=== PATIENT | male | born 1970 | race Caucasian/White ===

== ENCOUNTER 2017-09-05 12:36 | Emergency (ER) | payer MEDICARE, OTHER ==
[2017-09-05] MEDS ORDERED: KETOROLAC TROMETHAMINE INJ 30 MG/ML VIAL IV ONE (12:55)
[2017-09-05] MEDS ORDERED: SODIUM CHLORIDE 0.9% 1000ML 1,000 ML IVS ONE (12:56)
[2017-09-05] MEDS ORDERED: ONDANSETRON INJ 4 MG/2 ML VIAL IV ONE (12:56)
--- NOTE | 2017-09-05 13:01 | ED.PDOC ---
History of Present Illness - General Chief Complaint: Problem Stated Complaint: Groin/abdominal discomfort Time Seen by Provider: 09/05/17 12:55 Source: patient Exam Limitations: no limitations - History of Present Illness Initial Comments: ACUTE ONSET OF RIGHT FLANK PAIN RADIATING TO THE RIGHT SCROTAL AREA. ONSET TWO HOURS AGO AND VOICES THAT HE HAS HAD RENAL COLIC BEFORE. HE RATES THE PAIN 10/ 10. Timing/Duration: just prior to arrival, this morning Quality: severe, throbbing Onset Location: right flank Radiation: scrotal Activites at Onset: none Prior abdominal problems: similar symptoms Worsening Factors: nothing Associated Symptoms: nausea/vomiting Allergies/Adverse Reactions: Allergies NO KNOWN ALLERGY Allergy (Verified 01/05/13 10:27) Home Medications: Ambulatory Orders Ketorolac Tromethamine 10 mg PO Q8HRS #13 tab 09/05/17 Tamsulosin HCl [Flomax] 0.4 mg PO BIW #7 cap 09/05/17 Tramadol HCl 50 mg PO QID #20 tab 09/05/17 Review of Systems - Review of Systems Constitutional: States: malaise EENTM: States: no symptoms reported Respiratory: States: no symptoms reported Cardiology: States: no symptoms reported Gastrointestinal/Abdominal: States: see HPI, abdominal pain, nausea, vomiting Genitourinary: States: pain Musculoskeletal: States: no symptoms reported Skin: States: no symptoms reported Neurological: States: no symptoms reported Endocrine: States: no symptoms reported Hematologic/Lymphatic: States: no symptoms reported Past Medical History (General) - Patient Medical History Hx Stroke: No Hx Congestive Heart Failure: No Hx Diabetes: No Hx Renal Disease: - Hx of kidney stones Surgical History: tonsillectomy - Vaccination History Hx Influenza Vaccination: No Hx Pneumococcal Vaccination: No - Social History Hx Tobacco Use: Yes Family Medical History - Family History Father Family History: No Known Living Status: Physical Exam - Physical Exam General Appearance: Alert, Ill Appearing, Restless Eyes, Ears, Nose, Throat Exam: PERRL/EOMI, normal ENT inspection, TMs normal, pharynx normal Neck: non-tender, full range of motion, supple Cardiovascular/Respiratory: regular rate, rhythm, normal peripheral pulses, no JVD Gastrointestinal/Abdominal: normal bowel sounds, non tender, soft, no organomegaly, no pulsatile mass Rectal Exam: deferred Back Exam: normal inspection, no vertebral tenderness, CVA tenderness (R) Extremity: normal range of motion, non-tender, normal inspection, no pedal edema Neurologic: no motor/sensory deficits, normal mood/affect, oriented x 3 Skin Exam: normal color Lymphatic: no adenopathy Progress - Results/Orders Results/Orders: UA IS RESULTED-TNTC RBC'S. CT ABDOMEN AND PELVIS: 5 MM STONE ON THE LEFT DISTAL URETER Departure - Departure Clinical Impression: Renal colic on left side Time of Disposition: 16:36 Disposition: Discharge to Home or Self Care Condition: Good Departure Forms: ED Discharge - Pt. Copy, Patient Portal Self Enrollment Instructions: DI for Kidney Stones Diet: resume usual diet Activity: increase activity as tolerated Referrals: Sky Clayton III, MD [Primary Care Provider] - 1-2 Weeks Prescriptions: Ketorolac Tromethamine 10 mg PO Q8HRS #13 tab Tamsulosin HCl [Flomax] 0.4 mg PO BIW #7 cap Tramadol HCl 50 mg PO QID #20 tab Home Medications: Ambulatory Orders Ketorolac Tromethamine 10 mg PO Q8HRS #13 tab 09/05/17 Tamsulosin HCl [Flomax] 0.4 mg PO BIW #7 cap 09/05/17 Tramadol HCl 50 mg PO QID #20 tab 09/05/17
--- NOTE | 2017-09-05 16:12 | CT ---
EXAM DESCRIPTION: Abdoment/Pelvis w/o Contrast CLINICAL HISTORY: 47 years Male RIGHT FLANK PAIN-STONE STUDY COMPARISON: 01/05/2013 TECHNIQUE: Contiguous axial images obtained through the abdomen and pelvis without IV contrast. Reformatted images obtained. This exam was performed according to our department optimization program which includes automated exposure control, adjustment of the mA and/or kv according to patient size and/or use of iterative reconstruction technique. FINDINGS: The lung bases are clear. The liver appears unremarkable. The spleen and pancreas appear unremarkable. No adrenal masses. There are nonobstructing renal calculi bilaterally. There is mild left hydronephrosis. There is an obstructing distal left ureteral stone measuring 5 mm. The gallbladder is visualized. No aneurysmal dilatation of the aorta. No bowel obstruction. No free pelvic fluid. IMPRESSION: Mild left hydronephrosis with an obstructing 5 mm distal ureteral calculus Nonobstructing renal calculi bilaterally Electronically signed by: Liliya Dominique 09/05/2017 4:11 PM CASE MONITOR
[2017-09-05 16:52] VITALS: BP 148/84; TEMP 97; O2SAT 96
== END 2017-09-05 16:42 | disposition home or self-care (01) ==
LOC: ER 12:36
DX: N13.2 Hydronephrosis with renal and ureteral calculous obstruction (principal); Z87.442 Personal history of urinary calculi; Z87.891 Personal history of nicotine dependence
CPT/HCPCS: 36415; 74176; 80053; 81001; 85025; J1885; J2405; J7030

== ENCOUNTER 2018-01-10 19:22 | Emergency (ER) | payer SELFPAY ==
[2018-01-10] MEDS ORDERED: PROMETHAZINE HCL INJ 25 MG in SODIUM CHLORIDE 0.9% 50ML 50 ML IVPB ONE (19:42)
[2018-01-10] MEDS ORDERED: SODIUM CHLORIDE 0.9% 1000ML 1,000 ML IVS ONE ×2 (19:42→21:07)
[2018-01-10 20:03] VITALS: TEMP 98.3; O2SAT 94
[2018-01-10] MEDS ORDERED: SODIUM CHLORIDE 0.9% 50ML 50 ML ONE (20:20)
[2018-01-10] MEDS ORDERED: PROMETHAZINE HCL INJ 25 MG/ML VIAL ONE (20:20)
--- NOTE | 2018-01-10 20:38 | RAD ---
EXAM DESCRIPTION: Abdomen Series CLINICAL HISTORY: nausea vomiting 3 days COMPARISON: None FINDINGS: Three view chest and abdomen were submitted. Lungs are clear and heart size normal. There is no free air in the abdomen. There is no evidence of bowel obstruction. Moderate stool in the colon. IMPRESSION: Constipation. Electronically signed by: Marcel Victoria 01/10/2018 8:37 PM CDT
--- NOTE | 2018-01-10 21:53 | ED.PDOC ---
History of Present Illness - General Chief Complaint: GI Problem Stated Complaint: N/V x's 3 days Time Seen by Provider: 01/10/18 19:26 Source: patient Exam Limitations: no limitations - History of Present Illness Initial Comments: the patient is a 47-year-old male presenting to the emergency room secondary to body aches along with a headache as well as nausea and vomiting for the last 3 days. For around that same time. The patient has undergone significant continued heat exposure. He has been staying in the house and does not have air conditioning. He has been sweating constantly. He is not really having specific abdominal pain more abdominal cramping. The patient was seen here approximately 5 months ago for a kidney stone and had a CT scan of abdomen and pelvis which only showed kidney stones as a pathology. No other abnormalities at that time. Additionally at that time he did have a elevated white blood cell count. He also had elevated liver function test at that time. Again no abnormalities of the liver or pancreas were seen on that scan. Timing/Duration: unsure Severity: moderate Improving Factors: nothing Worsening Factors: nothing Associated Symptoms: loss of appetite, malaise, nausea/vomiting Allergies/Adverse Reactions: Allergies NO KNOWN ALLERGY Allergy (Verified 01/10/18 20:03) Home Medications: Ambulatory Orders Ketorolac Tromethamine 10 mg PO Q8HRS #13 tab 09/05/17 Tamsulosin HCl [Flomax] 0.4 mg PO BIW #7 cap 09/05/17 Tramadol HCl 50 mg PO QID #20 tab 09/05/17 Famotidine 20 mg PO DAILY #30 tab 01/10/18 Ondansetron [Zofran Odt] 4 mg PO Q4H PRN #10 tab 01/10/18 Sucralfate Tab [Carafate Tab] 1 gm PO QID #120 tab 01/10/18 Review of Systems - Review of Systems Constitutional: States: malaise, weakness - generalized EENTM: States: no symptoms reported Respiratory: States: no symptoms reported Cardiology: States: no symptoms reported Gastrointestinal/Abdominal: States: nausea, vomiting Genitourinary: States: no symptoms reported Musculoskeletal: States: other - generalized body aches Skin: States: no symptoms reported Neurological: States: headache Endocrine: States: no symptoms reported All other Systems: No Change from Baseline Past Medical History (General) - Patient Medical History Hx Seizures: No Hx Stroke: No Hx Dementia: No Hx Asthma: No Hx of COPD: No Hx Cardiac Disorders: No Hx Congestive Heart Failure: No Hx Pacemaker: No Hx Hypertension: No Hx Thyroid Disease: No Hx Diabetes: No Hx Gastroesophageal Reflux: No Hx Renal Disease: Yes - Hx of kidney stones Hx of HIV: No Hx MRSA: No Surgical History: no surgical history - Vaccination History Hx Tetanus, Diphtheria Vaccination: Yes Hx Influenza Vaccination: No Hx Pneumococcal Vaccination: No - Social History Hx Tobacco Use: Yes Hx Alcohol Use: No Family Medical History - Family History Father Family History: No Known Living Status: Physical Exam - Physical Exam General Appearance: Alert, No apparent distress Eye Exam: bilateral normal Ears, Nose, Throat: hearing grossly normal, normal ENT inspection, normal pharynx Neck: full range of motion, supple Respiratory: lungs clear, normal breath sounds, no respiratory distress, no accessory muscle use Cardiovascular/Chest: normal peripheral pulses, regular rate, rhythm, no edema Peripheral Pulses: radial,right: 2+, radial,left: 2+, dorsalis pedis,right: 2+, dorsalis pedis,left: 2+ Gastrointestinal/Abdominal: non tender, soft Rectal Exam: deferred Back Exam: normal inspection, no CVA tenderness Extremity: normal range of motion, non-tender, normal inspection, no pedal edema , normal capillary refill 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 The patient is obviously hemoconcentrated. He does have an elevation of his white blood cell count which has been seen before in the past and in a noninfectious state with this patient. He does need to have a repeat CBC performed in a couple of weeks once he is over this current issue. He does have some hyponatremia which goes along with heat exhaustion and dehydration. He also has an elevation in his liver function tests which were seen before on his previous visit as well. It is a low-grade elevation. He had a CT scan at his last visit which was normal, so one does not appear warranted at this point in time. The patient is going to be written for famotidine and Carafate for gastritis for the next couple of weeks. He can also use Zofran as needed to control any nausea. Maalox can be used additionally as needed for stomach symptoms. He does need to maintain a primarily liquid diet for the next couple of days. After that a bland diet is preferred. He does of course need to avoid hot spicy foods, large meals, nicotine or caffeine or alcohol. He does also need to try and keep himself cool as symptoms of heat exhaustion can be significantly prolonged and exacerbated by further exposure. Er warnings were given for any significant worsening. The patient will eventually need further workup with his primary care doctor for his mild chronic hepatitis. - Results/Orders Results/Orders: Vital Signs - 24 hr 01/10/18 19:36 Temperature 98.3 F Pulse Rate [ 96 H monitor] Respiratory 18 Rate Blood Pressure 157/82 [Left Arm] O2 Sat by Pulse 94 L Oximetry acute abdominal series fails to show any acute pathology. Laboratory Results - last 24 hr 01/10/18 01/10/18 01/10/18 20:00 20:00 20:23 WBC 26.7 H* RBC 5.54 Hgb 18.0 Hct 52.5 H MCV 94.6 H MCH 32.5 H MCHC 34.3 RDW 13.4 Plt Count 208 MPV 9.0 Absolute Neuts (auto) 21.80 H Absolute Lymphs (auto) 2.80 Absolute Monos (auto) 1.90 H Absolute Eos (auto) 0.10 Absolute Basos (auto) 0.10 Neutrophils % Not Reportable Neutrophils % (Manual) 79.0 H Lymphocytes % Not Reportable Lymphocytes % (Manual) 13.0 Monocytes % Not Reportable Monocytes % (Manual) 3.0 Eosinophils % Not Reportable Basophils % Not Reportable Band Neutrophils 5.0 H Platelet Estimate Normal Spherocytes 3+ Sodium 129 L Potassium 4.2 Chloride 97 L Carbon Dioxide 24 Anion Gap 12.2 BUN 14 Creatinine 0.73 BUN/Creatinine Ratio 19.2 Random Glucose 115 H Serum Osmolality 260.3 L Calcium 9.4 Magnesium 1.8 Total Bilirubin 1.0 AST 67 H ALT 122 H Alkaline Phosphatase 79 Serum Total Protein 8.1 Albumin 3.8 Globulin 4.3 H Albumin/Globulin Ratio 0.9 L Amylase 36 Lipase 24 Urine Color Yellow Urine Appearance Clear Urine pH 7.0 Ur Specific [place] 1.020 Urine Protein Negative Urine Glucose (UA) Negative Urine Ketones Negative Urine Blood Negative Urine Nitrite Negative Urine Bilirubin Negative Urine Urobilinogen 0.2 Ur Leukocyte Esterase Negative Urine RBC 0 Urine WBC 0 Ur Epithelial Cells 0 Urine Bacteria Rare Urine Mucus Small Departure - Departure Clinical Impression: Heat exhaustion Qualifiers: Encounter type: initial encounter Qualified Code(s): T67.5XXA - Heat exhaustion , unspecified, initial encounter Disposition: Discharge to Home or Self Care Condition: Fair Departure Forms: ED Discharge - Pt. Copy, Patient Portal Self Enrollment Instructions: DI for Heat Exhaustion and Heat Stroke Diet: bland diet Activity: increase activity as tolerated Referrals: Sky Clayton III, MD [Primary Care Provider] - 1-5 Days Prescriptions: Famotidine 20 mg PO DAILY #30 tab Ondansetron [Zofran Odt] 4 mg PO Q4H PRN #10 tab PRN Reason: Vomiting Sucralfate Tab [Carafate Tab] 1 gm PO QID #120 tab Home Medications: Ambulatory Orders Ketorolac Tromethamine 10 mg PO Q8HRS #13 tab 09/05/17 Tamsulosin HCl [Flomax] 0.4 mg PO BIW #7 cap 09/05/17 Tramadol HCl 50 mg PO QID #20 tab 09/05/17 Famotidine 20 mg PO DAILY #30 tab 01/10/18 Ondansetron [Zofran Odt] 4 mg PO Q4H PRN #10 tab 01/10/18 Sucralfate Tab [Carafate Tab] 1 gm PO QID #120 tab 01/10/18 Additional Instructions: the patient is a 47-year-old male presenting to the emergency room secondary to what appears to be the result of heat exhaustion. The patient is obviously hemoconcentrated. He does have an elevation of his white blood cell count which has been seen before in the past and in a noninfectious state with this patient. He does need to have a repeat CBC performed in a couple of weeks once he is over this current issue. He does have some hyponatremia which goes along with heat exhaustion and dehydration. He also has an elevation in his liver function tests which were seen before on his previous visit as well. It is a low-grade elevation. He had a CT scan at his last visit which was normal, so one does not appear warranted at this point in time. The patient is going to be written for famotidine and Carafate for gastritis for the next couple of weeks. He can also use Zofran as needed to control any nausea. Maalox can be used additionally as needed for stomach symptoms. He does need to maintain a primarily liquid diet for the next couple of days. After that a bland diet is preferred. He does of course need to avoid hot spicy foods, large meals, nicotine or caffeine or alcohol. He does also need to try and keep himself cool as symptoms of heat exhaustion can be significantly prolonged and exacerbated by further exposure. Er warnings were given for any significant worsening. The patient will eventually need further workup with his primary care doctor for his mild chronic hepatitis. the patient did have some mild hyponatremia here today which does need to be recheckedat his follow-up appointment as well.
[2018-01-10] MEDS ORDERED: SUCRALFATE 1 GM/10 ML 1 GM UD PO ONE (22:04)
[2018-01-10] MEDS ORDERED: ONDANSETRON ODT 8 MG TAB SL ONE (22:04)
[2018-01-10 23:30] VITALS: BP 163/96
== END 2018-01-10 23:55 | disposition home or self-care (01) ==
LOC: ER 19:22
DX: T67.5XXA Heat exhaustion, unspecified, initial encounter (principal); Z87.891 Personal history of nicotine dependence; E87.1 Hypo-osmolality and hyponatremia; X30.XXXA Exposure to excessive natural heat, initial encounter; Y92.009 Unspecified place in unspecified non-institutional (private) residence as the place of occurrence of the external cause
CPT/HCPCS: 36415; 74019; 80053; 81001; 82150; 83690; 83735; 85025; A4216; J2550; J7030

== ENCOUNTER 2018-09-12 21:13 | Emergency (ER) | payer SELFPAY | END 2018-09-12 21:20 | disposition left against medical advice (07) | LOC: ER 21:13 | DX: R05 Cough (principal); Z53.21 Procedure and treatment not carried out due to patient leaving prior to being seen by health care provider ==

== ENCOUNTER 2018-09-13 16:14 | Emergency (ER) | payer SELFPAY ==
[2018-09-13] MEDS ORDERED: IBUPROFEN 200 MG TAB PO ONE (16:20)
[2018-09-13] MEDS ORDERED: ONDANSETRON ODT 8 MG TAB SL ONE (16:20)
[2018-09-13] MEDS ORDERED: OSELTAMIVIR 75 MG CAP PO ONE (16:20)
[2018-09-13 16:35] VITALS: TEMP 98.3
--- NOTE | 2018-09-13 16:36 | RAD ---
EXAM DESCRIPTION: Chest,2 Views CLINICAL HISTORY: cough, sob 5 days COMPARISON: Previous study March 25, 2011 TECHNIQUE: PA/lateral FINDINGS: There is no acute appearing cardiac or pulmonary abnormality. Heart size is normal with normal pulmonary vascularity. No pleural effusion or pneumothorax. Lungs are clear with no consolidating infiltrate. Lateral view shows intact sternum and T-spine. IMPRESSION: No acute process is identified in the chest. 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
--- NOTE | 2018-09-13 16:44 | ED.PDOC ---
History of Present Illness - General Chief Complaint: General Stated Complaint: flu like symptoms Time Seen by Provider: 09/13/18 16:20 Source: patient Exam Limitations: no limitations - History of Present Illness Initial Comments: The patient a 48-year-old male presenting to the emergency room secondary to body aches sore throat and mild cough for the last few days along with something of a runny nose. He has also had some headaches. He has coughed until he was thrown up. He has not seen his primary care doctor but his primary care doctor did call him in a Z-[place]il which she has taken 2 days of. His is currently in the hospital for the flu. He has obviously been exposed. He is oxygenating well and is not febrile. He actually came here last night but decided that the wait was too long so we went back home. Timing/Duration: unsure Severity: moderate Improving Factors: nothing Worsening Factors: nothing Associated Symptoms: cough, fever/chills, nausea/vomiting - with cough Allergies/Adverse Reactions: Allergies NO KNOWN ALLERGY Allergy (Verified 01/10/18 20:03) Home Medications: Ambulatory Orders Ondansetron [Zofran Odt] 4 mg PO Q4H PRN #10 tab 09/13/18 Oseltamivir Capsule [Tamiflu] 75 mg PO BID 5 Days #10 capsule 09/13/18 Review of Systems - Review of Systems Constitutional: States: fever, malaise EENTM: States: nose congestion, throat pain Respiratory: States: cough Cardiology: States: no symptoms reported Gastrointestinal/Abdominal: States: nausea Genitourinary: States: no symptoms reported Musculoskeletal: States: no symptoms reported - generalized myalgias Skin: States: no symptoms reported Neurological: States: headache Endocrine: States: no symptoms reported All other Systems: No Change from Baseline Past Medical History (General) - Patient Medical History Hx Seizures: No Hx Stroke: No Hx Dementia: No Hx Asthma: No Hx of COPD: No Hx Cardiac Disorders: No Hx Congestive Heart Failure: No Hx Pacemaker: No Hx Hypertension: No Hx Thyroid Disease: No Hx Diabetes: No Hx Gastroesophageal Reflux: No Hx Renal Disease: Yes - Hx of kidney stones Hx of HIV: No Hx MRSA: No Surgical History: tonsillectomy - Vaccination History Hx Tetanus, Diphtheria Vaccination: Yes Hx Influenza Vaccination: No Hx Pneumococcal Vaccination: No - Social History Hx Tobacco Use: Yes Cigars Per Day: 1 Hx Alcohol Use: No Family Medical History - Family History Father Family History: No Known Living Status: Physical Exam - Physical Exam General Appearance: Alert, Comfortable, No apparent distress Eye Exam: bilateral normal Ears, Nose, Throat: hearing grossly normal, nasal congestion, pharyngeal erythema Neck: full range of motion, supple Respiratory: lungs clear, normal breath sounds, no respiratory distress, no accessory muscle use Cardiovascular/Chest: normal peripheral pulses, regular rate, rhythm, no edema Peripheral Pulses: radial,right: 2+, radial,left: 2+ Gastrointestinal/Abdominal: non tender, soft Rectal Exam: deferred Back Exam: no CVA tenderness, no vertebral tenderness Extremity: non-tender, normal inspection, no pedal edema, no calf tenderness, normal capillary refill 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 His significant other tested positive for it. Chest x-ray shows no evidence of any significant infiltrate and he is not hypoxic. No evidence of sepsis. Needs to keep himself well hydrated and use Motrin 600 mg every 8 hours as needed to reduce symptoms. He will be written for the treatment course of Tamiflu. He can finish his course of azithromycin. ER warnings were given. Keep follow-up with primary care doctor. he will be written for Zofran for as needed use to control any vomiting. Departure - Departure Clinical Impression: Influenza A Disposition: Discharge to Home or Self Care Condition: Fair Departure Forms: ED Discharge - Pt. Copy, Patient Portal Self Enrollment Instructions: Flu, Adult (DC) Diet: regular diet Activity: increase activity as tolerated Referrals: Sky Clayton III, MD [Primary Care Provider] - 1-2 Weeks Prescriptions: Ondansetron [Zofran Odt] 4 mg PO Q4H PRN #10 tab PRN Reason: Vomiting Oseltamivir Capsule [Tamiflu] 75 mg PO BID 5 Days #10 capsule Home Medications: Ambulatory Orders Ondansetron [Zofran Odt] 4 mg PO Q4H PRN #10 tab 09/13/18 Oseltamivir Capsule [Tamiflu] 75 mg PO BID 5 Days #10 capsule 09/13/18 Additional Instructions: the patient a 48-year-old male presenting to the emergency room with what is most likely influenza. His significant other tested positive for it. Chest x-ray shows no evidence of any significant infiltrate and he is not hypoxic. No evidence of sepsis. Needs to keep himself well hydrated and use Motrin 600 mg every 8 hours as needed to reduce symptoms. He will be written for the treatment course of Tamiflu. He can finish his course of azithromycin. ER warnings were given. Keep follow-up with primary care doctor. he will be written for Zofran for as needed use to control any vomiting.
[2018-09-13 16:59] VITALS: BP 125/86; O2SAT 94
== END 2018-09-13 16:59 | disposition home or self-care (01) ==
LOC: ER 16:14
DX: J10.1 Influenza due to other identified influenza virus with other respiratory manifestations (principal); Z87.891 Personal history of nicotine dependence